=== PATIENT | female | born 1960 | race Caucasian/White ===

== ENCOUNTER 2017-08-15 00:13 | Emergency (ER) | payer OTHER ==
[2017-08-15] MEDS ORDERED: NS 1,000 ML IV ONE (01:12)
[2017-08-15] MEDS ORDERED: ONDANSETRON 4 MG/2 ML VIAL IVP ONE (01:12)
--- NOTE | 2017-08-15 01:25 | EDPHY ---
H & P Stated Complaint: n/v, hysterectomy this AM Time Seen by Provider: 08/15/17 01:22 HPI/ROS: HPI The patient presents with nausea and vomiting for the last several hours. She had a hysterectomy performed today by Dr. Kyle Jimenez at [facility] for uterine cancer. This was robotic ROXANNE/BSO with lymph node resection. She does not usually do well with anesthesia she says. She did have general anesthesia administered. She was in the PACU for several hours and left the hospital at 6:00 p.m.. She had ongoing nausea there. She was able to urinate, and was eventually discharged. While at home, she took a dose of Zofran 0 DT without improvement in her symptoms. She was able to take 1 oxycodone, however could not tolerate any of her other pain medications. She does have pain at her surgical incisions. She has not had a fever. She has not had any diarrhea.. REVIEW OF SYSTEMS Constitutional: No fever, no chills. Eyes: No discharge. ENT: No sore throat. Cardiovascular: No chest pain, no palpitations. Respiratory: No cough, no shortness of breath. Gastrointestinal: No abdominal pain, positive for vomiting. Genitourinary: No hematuria. Musculoskeletal: No back pain. Skin: No rashes. Neurological: No headache. PMHx: Uterine cancer, status post hysterectomy Soc Hx: Here with a family member PHYSICAL General Appearance: Alert, uncomfortable appearing Eyes: Pupils equal and round no pallor or injection ENT, Mouth: Mucous membranes moist Respiratory: There are no retractions, lungs are clear to auscultation Cardiovascular: Regular rate and rhythm Gastrointestinal: Abdomen is soft and non-tender, there are 5 laparoscopic surgical incisions with surrounding mild erythema and ecchymoses, no masses, bowel sounds normal Neurological: A&O, moves all extremities Skin: Warm and dry, no rashes Musculoskeletal: Neck is supple non tender Extremities: symmetrical, full range of motion Psychiatric: Patient is oriented X 3, there is no agitation Source: Patient Exam Limitations: No limitations - Personal History Current Tetanus Diphtheria and Acellular Pertussis (TDAP): Yes - Medical/Surgical History Hx Asthma: No Hx Chronic Respiratory Disease: No Hx Diabetes: No Hx Cardiac Disease: No Hx Renal Disease: No Hx Cirrhosis: No Hx Alcoholism: No Hx HIV/AIDS: No Hx Splenectomy or Spleen Trauma: No Other PMH: hysterectomy - Social History Smoking Status: Never smoked Constitutional: Initial Vital Signs Temperature (C) 36.8 C 08/15/17 00:18 Heart Rate 84 08/15/17 00:18 Respiratory Rate 20 08/15/17 00:18 Blood Pressure 153/105 H 08/15/17 00:18 O2 Sat (%) 95 08/15/17 00:18 O2 Delivery Mode Room Air Allergies/Adverse Reactions: Sulfa (Sulfonamide Antibiotics) Allergy (Mild, Verified 08/15/17 00:17) Rash Home Medications: Medication Instructions Recorded Promethazine HCl [Phenergan 25mg 25 mg PO Q6H PRN #20 tab 08/15/17 (*)] Medical Decision Making Differential Diagnosis: This is a 57-year-old female, postop day 1. from robotic TA H/BSO for uterine cancer , who underwent general anesthesia, who now presents with nausea and vomiting. Differential diagnosis includes dehydration, electrolyte disturbance, anesthesia side-effect. In the emergency department, IV line was established and the patient was given given 1 L of normal saline. Labs were checked and did reveal hyponatremia. I suspect this is related to dehydration and occurred over the last 24 hr. Because of this I did continue hydration with normal saline. She was given Zofran, then Phenergan with complete resolution in her symptoms. She was able to drink fluids without difficulty. I will send her home with Phenergan. I have explained that she should have her sodium rechecked in the coming days. She is able to do this. - Data Points Laboratory Results: Laboratory Results 08/15/17 00:55 08/15/17 00:55 08/15/17 08/15/17 00:55 00:55 WBC 13.06 10^3/uL H 10^3/uL (3.80-9.50) RBC 4.02 10^6/uL L 10^6/uL (4.18-5.33) Hgb 12.6 g/dL g/dL (12.6-16.3) Hct 35.9 % L % (38.0-47.0) MCV 89.3 fL fL (81.5-99.8) MCH 31.3 pg pg (27.9-34.1) MCHC 35.1 g/dL g/dL (32.4-36.7) RDW 12.5 % % (11.5-15.2) Plt Count 256 10^3/uL 10^3/uL (150-400) MPV 10.0 fL fL (8.7-11.7) Neut % (Auto) 79.4 % H % (39.3-74.2) Lymph % (Auto) 13.8 % L % (15.0-45.0) [place] % (Auto) 6.1 % % (4.5-13.0) Eos % (Auto) 0.1 % L % (0.6-7.6) Baso % (Auto) 0.2 % L % (0.3-1.7) Nucleat RBC Rel Count 0.0 % % (0.0-0.2) Absolute Neuts (auto) 10.37 10^3/uL H 10^3/uL (1.70-6.50) Absolute Lymphs (auto) 1.80 10^3/uL 10^3/uL (1.00-3.00) Absolute Monos (auto) 0.80 10^3/uL 10^3/uL (0.30-0.80) Absolute Eos (auto) 0.01 10^3/uL L 10^3/uL (0.03-0.40) Absolute Basos (auto) 0.03 10^3/uL 10^3/uL (0.02-0.10) Absolute Nucleated RBC 0.00 10^3/uL 10^3/uL (0-0.01) Immature Gran % 0.4 % % (0.0-1.1) Immature Gran # 0.05 10^3/uL 10^3/uL (0.00-0.10) Sodium 125 mEq/L L mEq/L (135-145) Potassium 4.5 mEq/L mEq/L (3.5-5.2) Chloride 96 mEq/L L mEq/L (97-110) Carbon Dioxide 18 mEq/l L mEq/l (22-31) Anion Gap 11 mEq/L mEq/L (8-16) BUN 15 mg/dL mg/dL (7-23) Creatinine 0.8 mg/dL mg/dL (0.6-1.0) Estimated GFR > 60 Glucose 98 mg/dL mg/dL (70-100) Calcium 9.3 mg/dL mg/dL (8.5-10.4) Total Bilirubin 0.9 mg/dL mg/dL (0.1-1.4) AST 33 IU/L IU/L (14-46) ALT 36 IU/L IU/L (9-52) Alkaline Phosphatase 79 IU/L IU/L (38-126) Total Protein 6.6 g/dL g/dL (6.3-8.2) Albumin 3.8 g/dL g/dL (3.5-5.0) Medications Given: Discontinued Medications Sodium Chloride (Ns) 1,000 mls @ 0 mls/hr IV EDNOW ONE; Wide Open PRN Reason: Protocol Stop: 08/15/17 01:13 Last Admin: 08/15/17 01:16 Dose: 1,000 mls Ketorolac Tromethamine (Toradol) 15 mg IVP EDNOW ONE Stop: 08/15/17 02:12 Last Admin: 08/15/17 02:15 Dose: 15 mg Ondansetron HCl (Zofran) 4 mg IVP EDNOW ONE Stop: 08/15/17 01:13 Last Admin: 08/15/17 01:16 Dose: 4 mg Promethazine HCl (Phenergan) 12.5 mg IVP ONCE ONE Stop: 08/15/17 01:41 Last Admin: 08/15/17 01:42 Dose: 12.5 mg Promethazine HCl (Phenergan 25 Mg Prepack #4) 1 btl TAKEHOME EDNOW ONE Stop: 08/15/17 02:57 Last Admin: 08/15/17 03:08 Dose: 1 btl Departure - Departure Disposition: Home, Routine, Self-Care Clinical Impression: History of hysterectomy, Hyponatremia Nausea & vomiting Qualifiers: Vomiting type: unspecified Vomiting Intractability: non-intractable Qualified Code(s): R11.2 - Nausea with vomiting, unspecified Condition: Good Instructions: Acute Nausea and Vomiting (ED) Additional Instructions: On your lab tests today, we did find that your sodium level was slightly low. I think this is related to dehydration. However, you should have your sodium rechecked in the next 1 week sometime. Referrals: Bebe Loera MD [Primary Care Provider] - As per Instructions Prescriptions: Promethazine HCl [Phenergan 25mg (*)] 25 mg PO Q6H PRN #20 tab PRN Reason: Nausea/Vomiting, Can'T Take Po
[2017-08-15 01:38] LABS: PLATELET COUNT 256 10^3/uL (150-400)
[2017-08-15] MEDS ORDERED: PROMETHAZINE HCL 25 MG/ML INJ ONE (01:40)
[2017-08-15] MEDS ORDERED: PROMETHAZINE HCL 25 MG/ML INJ IVP ONE (01:40)
[2017-08-15] MEDS ORDERED: KETOROLAC 15 MG/1 ML SDV IVP ONE (02:11)
[2017-08-15] MEDS ORDERED: PROMETHAZINE 25 MG PREPACK #4 BTL TAKEHOME ONE (02:56)
[2017-08-15 03:01] VITALS: BP 127/91
== END 2017-08-15 03:11 | disposition home or self-care (01) ==
DX: R11.2 Nausea with vomiting, unspecified (principal); E87.1 Hypo-osmolality and hyponatremia; E86.9 Volume depletion, unspecified; Z90.710 Acquired absence of both cervix and uterus
CPT/HCPCS: 96374; J1885; J2405; J2550

== ENCOUNTER → 2018-01-31 | Outpatient (CLI) | payer OTHER | LOC: FIMAGING 15:02 | PROVIDERS: ATTEND Family Medicine | DX: Z12.31 Encounter for screening mammogram for malignant neoplasm of breast (principal) ==